=== PATIENT | male | born 1990 | race Caucasian/White ===

== ENCOUNTER 2018-04-07 22:00 | Emergency (ER) | payer BC ==
[~2018-04-07] VITALS: Ht 172.7 cm; Wt 83.9 kg
[2018-04-07 22:02] VITALS: BP_SYST 124
[2018-04-07] MEDS ORDERED: IBUPROFEN 800 MG TABLET PO ONE (22:15)
[2018-04-07 23:20] VITALS: BP_SYST 122
== END 2018-04-07 23:20 | disposition home or self-care (01) ==
LOC: SED 22:00
DX: M25.522 Pain in left elbow (principal); W19.XXXA Unspecified fall, initial encounter; Y93.89 Activity, other specified; Y92.89 Other specified places as the place of occurrence of the external cause; Y99.8 Other external cause status
CPT/HCPCS: 73060-TC; 99283